=== PATIENT | male | born 1970 | race Two or more races ===

== ENCOUNTER 2020-02-25 01:03 | Emergency (ER) | payer MEDICAID, OTHER ==
[~2020-02-25] VITALS: Ht 188 cm; Wt 88.5 kg
[2020-02-25 01:05] VITALS: BP 150/91
--- NOTE | 2020-02-25 01:38 | NUR ---
patient taken to CT via [facility]
--- NOTE | 2020-02-25 01:51 | NUR ---
returned from ct.
[2020-02-25] MEDS ORDERED: MORPHINE SULFATE INJ 2 MG/ML DISP.SYRIN IM ONE (02:00)
[2020-02-25] MEDS ORDERED: MORPHINE SULFATE INJ 4 MG/ML DISP.SYRIN ONE (02:13)
--- NOTE | 2020-02-25 03:23 | NUR ---
patient seen ambulating around bed with a steady gait.
--- NOTE | 2020-02-25 03:30 | NUR ---
patient provided with food, prescriptions explained to the patient not to operate behind machinery while under the influence of narcotics. patient verbalizes understanding. patient's armband is removed. placed into the shredder.
--- NOTE | 2020-02-25 03:32 | NUR ---
Patient on phone with friend. Patient states that friend will arrive to pick patient up from waiting room.
--- NOTE | 2020-02-25 03:33 | NUR ---
Patient discharged to home in stable condition. Written and verbal after care instructions given. Patient verbalizes understanding of instruction.
== END 2020-02-25 03:33 | disposition home or self-care (01) ==
LOC: ER 01:05
DX: M25.552 Pain in left hip (principal); G89.29 Other chronic pain; M54.5 Low back pain; V49.49XA Driver injured in collision with other motor vehicles in traffic accident, initial encounter; Y93.89 Activity, other specified; Y92.413 State road as the place of occurrence of the external cause; Y99.8 Other external cause status
CPT/HCPCS: 72192; 96372; 99284; J2270

== ENCOUNTER 2020-02-26 22:30 | Emergency (ER) | payer MEDICAID ==
[~2020-02-26] VITALS: Ht 188 cm; Wt 88.5 kg
[2020-02-26 22:40] VITALS: BP 139/77
== END 2020-02-26 23:03 | disposition home or self-care (01) ==
LOC: ER 22:30
DX: G89.29 Other chronic pain (principal); M79.604 Pain in right leg; M79.605 Pain in left leg

== ENCOUNTER 2020-03-06 23:24 | Emergency (ER) | payer MEDICAID ==
[~2020-03-06] VITALS: Ht 188 cm; Wt 88.5 kg
[2020-03-06 23:24] VITALS: BP 140/95
--- NOTE | 2020-03-07 00:06 | NUR ---
Patient discharged to home in stable condition. Written and verbal after care instructions given. Patient verbalizes understanding of instruction.pt. ambulatory with a steady gait
== END 2020-03-07 00:07 | disposition home or self-care (01) ==
LOC: ER 23:27
DX: M54.42 Lumbago with sciatica, left side (principal); G89.29 Other chronic pain; M25.552 Pain in left hip